=== PATIENT | male | born 1995 | race Caucasian/White ===

== ENCOUNTER 2018-01-16 02:49 | Emergency (ER) | payer OTHER ==
[~2018-01-16] VITALS: Ht 170.2 cm; Wt 90.7 kg
[2018-01-16 02:49] VITALS: BP 120/68
--- NOTE | 2018-01-16 02:49 | NUR ---
PATIENT AMBULATED TO ER BED 11.
--- NOTE | 2018-01-16 02:49 | NUR ---
22/M CAME IN W C/O LT SIDE CHEST PAIN RADIATING TO LEFT ARM, NONPROVOKED STARTED AT 1500 YESTERDAY. HR EVEN ANDREGULAR AT 79. REPORTS SOB, ALL LUNG SOUNDS CBTA 18RR EVEN AND UNLABORED. SKIN IS WARM AND DRY. DENIES N/V, TRAUMA. PMH: SVT, HTN, HLD
--- NOTE | 2018-01-16 02:59 | NUR ---
EKG PERFORMED AT BEDSIDE. NORMAL SINUS RHYTHM
[2018-01-16] MEDS ORDERED: ASPIRIN 81 MG TAB.CHEW PO ONE (03:20)
[2018-01-16 04:01] LABS: BASOPHILS # (AUTO) 0.1 K/uL (0.00-0.22); BASOPHILS % (AUTO) 0.8 % (0.0-2.0); EOSINOPHILS # (AUTO) 0.1 K/uL (0-0.4); EOSINOPHILS % (AUTO) 1.1 % (0.0-4.0); HEMATOCRIT 42.2 % (36-52); HEMOGLOBIN 14.1 g/dL (12.0-18.0); LYMPHOCYTES # (AUTO) 4.9 K/uL (2.0-11.5); LYMPHOCYTES % (AUTO) 53.4 % (20.5-51.1); MEAN CORPUSCULAR HEMOGLOBIN 30 pg (27-31); MEAN CORPUSCULAR HGB CONC 34 g/dL (33-37); MEAN CORPUSCULAR VOLUME 89.5 fL (80-94); MONOCYTES # (AUTO) 0.8 K/uL (0.8-1.0); MONOCYTES % (AUTO) 8.9 % (1.7-9.3); NEUTROPHILS # (AUTO) 3.3 K/uL (1.8-7.7); NEUTROPHILS % (AUTO) 35.8 % (42.2-75.2); PLATELET COUNT (AUTO) 276 K/uL (140-450); RED BLOOD CELL COUNT(AUTO) 4.71 MIL/uL (4.20-6.10); WHITE BLOOD COUNT (AUTO) 9.2 K/uL (4.8-10.8)
[2018-01-16 04:05] LABS: CARBON DIOXIDE 30.6 mmol/L (21-32); POTASSIUM 3.6 mmol/L (3.5-5.1)
[2018-01-16 04:08] LABS: TOTAL BILIRUBIN 0.2 mg/dL (0.0-1.0)
[2018-01-16] MEDS ORDERED: IBUPROFEN 800 MG TAB PO ONE (04:35)
[2018-01-16 04:53] VITALS: BP 120/78
== END 2018-01-16 04:51 | disposition home or self-care (01) ==
LOC: MED 02:49
DX: R07.89 Other chest pain (principal); K21.9 Gastro-esophageal reflux disease without esophagitis; I10 Essential (primary) hypertension
CPT/HCPCS: 36415; 80053; 84484; 85025; 93005; 99284

== ENCOUNTER 2018-01-20 23:38 | Emergency (ER) | payer OTHER ==
[~2018-01-20] VITALS: Ht 170.2 cm; Wt 85.7 kg
[2018-01-20 23:52] VITALS: BP 128/78
[2018-01-21 00:27] LABS: BASOPHILS # (AUTO) 0.1 K/uL (0.00-0.22); BASOPHILS % (AUTO) 0.6 % (0.0-2.0); EOSINOPHILS # (AUTO) 0.1 K/uL (0-0.4); HEMATOCRIT 41.8 % (36-52); LYMPHOCYTES # (AUTO) 5.1 K/uL (2.0-11.5); LYMPHOCYTES % (AUTO) 42.6 % (20.5-51.1); MEAN CORPUSCULAR HEMOGLOBIN 30 pg (27-31); MEAN CORPUSCULAR HGB CONC 33 g/dL (33-37); MEAN CORPUSCULAR VOLUME 89.9 fL (80-94); MONOCYTES # (AUTO) 0.8 K/uL (0.8-1.0); MONOCYTES % (AUTO) 6.7 % (1.7-9.3); NEUTROPHILS # (AUTO) 5.9 K/uL (1.8-7.7); NEUTROPHILS % (AUTO) 49.1 % (42.2-75.2); PLATELET COUNT (AUTO) 279 K/uL (140-450); RED BLOOD CELL COUNT(AUTO) 4.65 MIL/uL (4.20-6.10); RED CELL DISTRIBUTION WIDTH 13.2 % (11.6-13.7); WHITE BLOOD COUNT (AUTO) 11.9 K/uL (4.8-10.8)
[2018-01-21 00:38] LABS: ANION GAP 8.8 (8-16); CREATININE 0.9 mg/dL (0.7-1.3); POTASSIUM 3.8 mmol/L (3.5-5.1)
[2018-01-21 00:45] LABS: TOTAL BILIRUBIN 0.2 mg/dL (0.0-1.0)
--- NOTE | 2018-01-21 01:30 | NUR ---
PT TO ER BED 11
--- NOTE | 2018-01-21 01:35 | NUR ---
PT PRESENTED ER WITH CHEST PAIN TODAY. PT STATED HE WAS HAVING CHEST PAIN AND WENT TO [facility]. PT WAS DISCHARGED. TONIGHT HE STATED TO HAVE SOME ONSET OF PAIN AND SOME SOB AND ANXIETY. PAIN LEVEL IS 6/10. PT DENIES SMOKING, ALCOHOL AND REC. DRUGS. PT EKG AT THIS TIME IS NSR. PT WAS GIVEN ASPIRIN IN [place] AT 1452. PT HAS ALLERGY TO IBUPROFEN AND MEDICAL HISTORY OF HTN, HYPERLIPIDEMIA, GASTRITIS, SVT, PANIC ATTACKS AND ANXIETY. SKIN IS PINK/WARM/DRY; AAOX4 WITH EVEN AND STEADY GAIT; VSS; PATIENT POSITIONED FOR COMFORT; HOB ELEVATED; BEDRAILS UP X2; BED DOWN. ER MD MADE AWARE OF PT STATUS.
--- NOTE | 2018-01-21 02:45 | NUR ---
PT RESTING IN BED. PT VITALS STABLE.
[2018-01-21] MEDS ORDERED: LORazepam 1 MG TAB PO ONE (02:55)
[2018-01-21 03:40] VITALS: BP 132/80
--- NOTE | 2018-01-21 03:40 | NUR ---
Patient discharged with v/s stable. Written and verbal after care instructions given and explained. Patient alert, oriented and verbalized understanding of instructions. Ambulatory with steady gait. All questions addressed prior to discharge. ID band removed. Patient advised to follow up with PMD. Rx of ATARAX AND MOTRIN were given. Patient educated on indication of medication including possible reaction and side effects. Opportunity to ask questions provided and answered.
== END 2018-01-21 03:40 | disposition home or self-care (01) ==
LOC: MED 23:38
DX: F41.9 Anxiety disorder, unspecified (principal); R07.89 Other chest pain; K21.9 Gastro-esophageal reflux disease without esophagitis; E78.5 Hyperlipidemia, unspecified; Z88.6 Allergy status to analgesic agent
CPT/HCPCS: 36415; 80053; 83880; 84484; 85025; 85610; 85730; 93005; 99285